=== PATIENT | male | born 1950 | race Asian ===

== ENCOUNTER 2017-10-15 12:01 | Emergency (ER) | payer MEDICARE, OTHER ==
[2017-10-15] MEDS: METHYLPREDNISOLONE 125 MG INJ IV (15:09)
[2017-10-15] MEDS: ALBUTEROL 0.083% (NEB) 2.5 MG/3 ML AMP NEB (15:26)
[2017-10-15 15:27] LABS: ADD MAN DIFF? NO
[2017-10-15 15:30] LABS: BASOPHIL # 0.1 10^3/ul (0.0-0.1); BASOPHILS % 0.9 % (0.0-2.0); EOSINOPHILS # 0.3 10^3/ul (0.0-0.5); EOSINOPHILS % 3.7 % (0.0-7.0); HEMATOCRIT 39.4 % (42.0-52.0); HEMOGLOBIN 13.4 g/dl (14.0-18.0); LYMPHOCYTES # 2.2 10^3/ul (0.8-2.9); LYMPHOCYTES % 25.9 % (15.0-51.0); MEAN CORPUSCULAR HEMOGLOBIN 31.5 pg (29.0-33.0); MEAN CORPUSCULAR VOLUME 92.7 fl (82.0-101.0); MEAN PLATELET VOLUME 9.4 fl (7.4-10.4); MONOCYTE # 1.2 10^3/ul (0.3-0.9); NEUTROPHIL # 4.7 10^3/ul (1.6-7.5); NEUTROPHILS % 54.8 % (39.0-77.0); PLATELET COUNT 205 10^3/UL (140-415); RED BLOOD COUNT 4.25 10^6/ul (4.70-6.10); RED CELL DISTRIBUTION WIDTH 13.2 % (11.5-14.5)
[2017-10-15 15:30] LABS: WHITE BLOOD COUNT 8.6 10^3/ul (4.8-10.8)
[2017-10-15 15:52] LABS: ALANINE AMINOTRANSFERASE 31 IU/L (13-69); ALBUMIN 4.3 g/dl (3.3-4.9); ALBUMIN/GLOBULIN RATIO 1.13; ALKALINE PHOSPHATASE 94 IU/L (42-121); ANION GAP 18 (8-16); ASPARTATE AMINO TRANSFERASE 21 IU/L (15-46); BILIRUBIN,INDIRECT 0.4 mg/dl (0-1.1); BILIRUBIN,TOTAL 0.4 mg/dl (0.2-1.3); BLOOD UREA NITROGEN 12 mg/dl (7-20); CALCIUM 10.8 mg/dl (8.4-10.2); CARBON DIOXIDE 27 mmol/L (21-31); CHLORIDE 102 mmol/L (97-110); CREATININE 1.26 mg/dl (0.61-1.24); GLUCOSE 135 mg/dl (70-220); POTASSIUM 4.5 mmol/L (3.5-5.1); SODIUM 142 mmol/L (135-144); TOTAL PROTEIN 8.1 g/dl (6.1-8.1)
[2017-10-15 16:01] LABS: B-TYPE NATRIURETIC PEPTIDE 175 PG/ML (0-125)
[2017-10-15 16:07] LABS: TROPONIN-I < 0.012 ng/ml (0.00-0.12)
== END 2017-10-15 17:28 | disposition home or self-care (01) ==
LOC: E/R 12:01
DX: J44.9 Chronic obstructive pulmonary disease, unspecified (principal); I10 Essential (primary) hypertension; Z87.891 Personal history of nicotine dependence; Z79.82 Long term (current) use of aspirin
CPT/HCPCS: 36415; 71045; 80053; 83880; 84484; 85025; 93005; 94664; 96374; 99285-25

== ENCOUNTER 2018-01-10 11:57 | Emergency (ER) | payer MEDICARE, OTHER | END 2018-01-10 13:27 | disposition home or self-care (01) | LOC: E/R 11:57 | DX: R04.0 Epistaxis (principal); J44.9 Chronic obstructive pulmonary disease, unspecified; I10 Essential (primary) hypertension; C73 Malignant neoplasm of thyroid gland; Z87.891 Personal history of nicotine dependence | CPT/HCPCS: 99282 ==

== ENCOUNTER 2018-09-20 16:16 | Inpatient (IN) | payer MEDICARE, OTHER ==
[2018-09-20 16:45] LABS: ADD MAN DIFF? NO
[2018-09-20 16:51] LABS: BASOPHILS % 0.3 % (0.0-2.0); HEMATOCRIT 39.5 % (42.0-52.0); HEMOGLOBIN 13.6 g/dl (14.0-18.0); LYMPHOCYTES % 9.2 % (15.0-51.0); MEAN CORPUSCULAR HEMOGLOBIN 30.3 pg (29.0-33.0); MEAN CORPUSCULAR HGB CONC 34.4 g/dl (32.0-37.0); MEAN PLATELET VOLUME 10.1 fl (7.4-10.4); MONOCYTES % 8.8 % (0.0-11.0); NEUTROPHIL # 8.8 10^3/ul (1.6-7.5); NEUTROPHILS % 80.8 % (39.0-77.0); PLATELET COUNT 197 10^3/UL (140-415); RED BLOOD COUNT 4.49 10^6/ul (4.70-6.10); RED CELL DISTRIBUTION WIDTH 12.4 % (11.5-14.5)
[2018-09-20 16:51] LABS: WHITE BLOOD COUNT 10.9 10^3/ul (4.8-10.8)
[2018-09-20] MEDS: CEFEPIME 2GM/50 ML (PMX) 50 ML IVPB (16:55)
[2018-09-20] MEDS: SODIUM CHLORIDE 0.9% 1L BAG IV* (16:55)
[2018-09-20] MEDS: METHYLPREDNISOLONE 125 MG INJ IV (16:55)
[2018-09-20] MEDS: ACETAMINOPHEN 325 MG TAB PO (16:56)
[2018-09-20 16:58] LABS: INR 0.99; PROTIME 13.2 Sec (11.9-14.9)
[2018-09-20 17:00] LABS: ALANINE AMINOTRANSFERASE 39 IU/L (13-69); ALBUMIN 4.3 g/dl (3.3-4.9); ALBUMIN/GLOBULIN RATIO 1.04; ALKALINE PHOSPHATASE 84 IU/L (42-121); ANION GAP 14 (5-13); ASPARTATE AMINO TRANSFERASE 80 IU/L (15-46); BILIRUBIN,INDIRECT 0.6 mg/dl (0-1.1); BILIRUBIN,TOTAL 0.6 mg/dl (0.2-1.3); BLOOD UREA NITROGEN 17 mg/dl (7-20); CALCIUM 10.1 mg/dl (8.4-10.2); CARBON DIOXIDE 24 mmol/L (21-31); CHLORIDE 96 mmol/L (97-110); CREATININE 1.33 mg/dl (0.61-1.24); Estimated GFR 54 mL/min (>60); GLUCOSE 230 mg/dl (70-220); SODIUM 134 mmol/L (135-144); TOTAL PROTEIN 8.4 g/dl (6.1-8.1)
[2018-09-20 17:11] LABS: TROPONIN-I 0.021 ng/ml (0.000-0.120)
[2018-09-20] MEDS: ALBUTEROL 0.5% (NEB) 2.5 MG/0.5 ML AMP INH ×2 (17:19→19:11)
[2018-09-20] MEDS: IPRATROPIUM (NEB) 0.5 MG/2.5 ML AMP INH (17:20)
[2018-09-20] MEDS: VANCOMYCIN 1 GM (PMX) 250 ML IVPB (17:32)
[2018-09-20 17:43] LABS: FREE THYROXINE INDEX (Calc) 4.33 ug/ml (0.65-3.89); T3 UPTAKE 34.1 % (23.5-40.5); T4 (THYROXINE) 12.7 ug/dl (5.5-11.0)
[2018-09-20 18:30] LABS: THYROID STIMULATING HORMONE 0.033 MIU/L (0.465-4.680)
[2018-09-20] MEDS ORDERED: ACETAMINOPHEN 325 MG TAB PO (19:00)
[2018-09-20] MEDS ORDERED: ONDANSETRON 4 MG INJ IV (19:00)
[2018-09-20 19:20] LABS: AADO2 Arterial 31.6 mmHg (7.0-24.0); Allen Test ACCEPTAB; Arterial Base Excess -4.4 mmol/L (-3.0-3); Arterial Blood Gas Oxygen Sat 98.7 mmHG (95.0-98.0); Arterial COHb 0 % (0.0-3.0); Arterial Fraction of Oxyhgb 98.4 % (93.0-99.0); Arterial MetHb 0.3 % (0.0-1.5); Arterial pCO2 30.1 mmhg (35-45); MODE MASK - BIPAP; Site Right Radial
[2018-09-20 20:53] LABS: ANION GAP 12 (5-13); BLOOD UREA NITROGEN 14 mg/dl (7-20); CALCIUM 8.9 mg/dl (8.4-10.2); CARBON DIOXIDE 18 mmol/L (21-31); CHLORIDE 105 mmol/L (97-110); CREATININE 1.25 mg/dl (0.61-1.24); Estimated GFR 58 mL/min (>60); GLUCOSE 255 mg/dl (70-220); POTASSIUM 3.7 mmol/L (3.5-5.1); SODIUM 135 mmol/L (135-144)
[2018-09-20 21:21] LABS: ADD UMIC YES; UR ASCORBIC ACID NEGATIVE (NEGATIVE); UR BACTERIA FEW /HPF (NONE SEEN); UR BILIRUBIN (Dip) NEGATIVE (NEGATIVE); UR BLOOD (Dip) NEGATIVE (NEGATIVE); UR CLARITY CLEAR (CLEAR); UR COLOR YELLOW (YELLOW); UR GLUCOSE (Dip) 3+ mg/dL (NEGATIVE); UR KETONES (Dip) 1+ mg/dL (NEGATIVE); UR LEUKOCYTE ESTERASE (Dip) NEGATIVE Leu/ul (NEGATIVE); UR NITRITE (Dip) NEGATIVE (NEGATIVE); UR RBC 0 /HPF (0-5); UR SPECIFIC GRAVITY (Dip) 1.009 (1.003-1.030); UR TOTAL PROTEIN (Dip) 1+ mg/dl (NEGATIVE); UR UROBILINOGEN (Dip) 1+ mg/dL (NEGATIVE); UR WBC 1 /HPF (0-5)
[2018-09-20] MEDS: SOD CHLORIDE 0.9% 100 ML (21:53)
[2018-09-20] MEDS: IODIXANOL LOCM 100 ML BTL (21:54)
[2018-09-20 22:23] LABS: LACTIC ACID 5.9 mmol/L (0.5-2.0)
[2018-09-21] MEDS ORDERED: ALBUTEROL/IPRATROPIUM (NEB) 3 ML AMP HHN (03:00)
[2018-09-21] MEDS: 1/2 NS + KCL 20 MEQ 1,000 ML IV ×2 (03:21→23:22)
[2018-09-21] MEDS: LEVOFLOXACIN 750MG/D5W (PMX) 150 ML IVPB (03:22)
[2018-09-21] MEDS: IPRATROPIUM (NEB) 0.5 MG/2.5 ML AMP HHN ×5 (05:00→20:28)
[2018-09-21 05:29] LABS: Allen Test ACCEPTAB; Arterial Base Excess -3.1 mmol/L (-3.0-3); Arterial Blood Gas Oxygen Sat 99.1 mmHG (95.0-98.0); Arterial COHb 0.1 % (0.0-3.0); Arterial Fraction of Oxyhgb 98.7 % (93.0-99.0); Arterial HCO3 20.9 mmol/L (22.0-26.0); Arterial MetHb 0.3 % (0.0-1.5); Arterial pCO2 34.1 mmhg (35-45); MODE MASK - BIPAP; Site Right Radial
[2018-09-21] MEDS: PANTOPRAZOLE 40 MG INJ IV (05:44)
[2018-09-21] MEDS: METHYLPREDNISOLONE 40 MG INJ IV ×4 (05:44→23:22)
[2018-09-21 07:56] LABS: ADD MAN DIFF? NO
[2018-09-21 08:08] LABS: WHITE BLOOD COUNT 8.8 10^3/ul (4.8-10.8)
[2018-09-21 08:08] LABS: BASOPHILS % 0.2 % (0.0-2.0); HEMATOCRIT 34.6 % (42.0-52.0); HEMOGLOBIN 11.8 g/dl (14.0-18.0); LYMPHOCYTES # 0.6 10^3/ul (0.8-2.9); LYMPHOCYTES % 7.2 % (15.0-51.0); MEAN CORPUSCULAR HEMOGLOBIN 30.3 pg (29.0-33.0); MEAN CORPUSCULAR HGB CONC 34.1 g/dl (32.0-37.0); MEAN CORPUSCULAR VOLUME 88.7 fl (82.0-101.0); MEAN PLATELET VOLUME 10.5 fl (7.4-10.4); MONOCYTE # 0.4 10^3/ul (0.3-0.9); MONOCYTES % 4.1 % (0.0-11.0); NEUTROPHIL # 7.6 10^3/ul (1.6-7.5); NEUTROPHILS % 86.9 % (39.0-77.0); PLATELET COUNT 174 10^3/UL (140-415); RED CELL DISTRIBUTION WIDTH 12.5 % (11.5-14.5)
[2018-09-21 08:48] LABS: ANION GAP 6 (5-13); BLOOD UREA NITROGEN 16 mg/dl (7-20); CALCIUM 9.2 mg/dl (8.4-10.2); CARBON DIOXIDE 23 mmol/L (21-31); CHLORIDE 107 mmol/L (97-110); CREATININE 0.99 mg/dl (0.61-1.24); Estimated GFR > 60 mL/min (>60); GLUCOSE 274 mg/dl (70-220); POTASSIUM 3.9 mmol/L (3.5-5.1); SODIUM 136 mmol/L (135-144)
[2018-09-21] MEDS ORDERED: LEVOTHYROXINE 25 MCG TAB PO (09:00)
[2018-09-21] MEDS: ENOXAPARIN 40 MG/0.4 ML SYG SC (09:43)
[2018-09-21] MEDS: ATENOLOL 50 MG TAB PO (10:08)
[2018-09-21] MEDS: LOSARTAN 50 MG TAB PO (10:09)
[2018-09-21] MEDS: HYDROCHLOROTHIAZIDE 25 MG TAB PO (10:09)
[2018-09-21] MEDS: LEVOTHYROXINE 125 MCG TAB PO (10:10)
[2018-09-21] MEDS: TIOTROPIUM 18 MCG CAPSULE INHA DEV INH (15:02)
[2018-09-21] MEDS: CEFEPIME 1GM/50 ML (PMX) 50 ML IVPB (15:03)
[2018-09-21] MEDS: GUAIFENESIN/DM 5ML CUP PO (18:01)
[2018-09-21] MEDS: ARFORMOTEROL TARTRATE 15MCG/2 ML AMP INH (19:39)
[2018-09-21] MEDS: BUDESONIDE (NEB) 0.5MG/2ML AMP INH (19:45)
[2018-09-21] MEDS ORDERED: NON-FORMULARY/PATIENT OWN MED (Salmeterol Xinaf-Fluticasone* (Advair*) 1 INH) INHALATION (21:00)
[2018-09-22] MEDS: CEFEPIME 1GM/50 ML (PMX) 50 ML IVPB ×3 (00:58→20:11)
[2018-09-22] MEDS: IPRATROPIUM (NEB) 0.5 MG/2.5 ML AMP HHN ×6 (02:02→20:13)
[2018-09-22] MEDS: PANTOPRAZOLE (EC) 40 MG TAB PO (05:08)
[2018-09-22] MEDS: METHYLPREDNISOLONE 40 MG INJ IV ×3 (05:08→17:19)
[2018-09-22] MEDS: LEVOTHYROXINE 125 MCG TAB PO (05:08)
[2018-09-22] MEDS ORDERED: LEVOTHYROXINE 125 MCG TAB PO (07:00)
[2018-09-22] MEDS: TIOTROPIUM 18 MCG CAPSULE INHA DEV INH (08:21)
[2018-09-22] MEDS: LOSARTAN 50 MG TAB PO (08:21)
[2018-09-22] MEDS: ATENOLOL 50 MG TAB PO (08:21)
[2018-09-22] MEDS: HYDROCHLOROTHIAZIDE 25 MG TAB PO (08:22)
[2018-09-22] MEDS: ENOXAPARIN 40 MG/0.4 ML SYG SC (08:34)
[2018-09-22] MEDS ORDERED: ATENOLOL 50 MG TAB PO (09:00)
[2018-09-22] MEDS ORDERED: HYDROCHLOROTHIAZIDE 25 MG TAB PO (09:00)
[2018-09-22] MEDS ORDERED: NON-FORMULARY/PATIENT OWN MED (Omeprazole* 40 MG) PO (09:00)
[2018-09-22] MEDS: ARFORMOTEROL TARTRATE 15MCG/2 ML AMP INH ×3 (09:00→20:13)
[2018-09-22] MEDS ORDERED: LOSARTAN 50 MG TAB PO (09:00)
[2018-09-22] MEDS: BUDESONIDE (NEB) 0.5MG/2ML AMP INH ×3 (09:53→20:14)
[2018-09-22 10:04] LABS: ADD MAN DIFF? NO
[2018-09-22 10:06] LABS: ABNORMAL IP MESSAGE 1; BASOPHILS % 0.3 % (0.0-2.0); HEMATOCRIT 37.8 % (42.0-52.0); HEMOGLOBIN 12.6 g/dl (14.0-18.0); LYMPHOCYTES # 0.9 10^3/ul (0.8-2.9); LYMPHOCYTES % 7.5 % (15.0-51.0); MEAN CORPUSCULAR HEMOGLOBIN 29.7 pg (29.0-33.0); MEAN CORPUSCULAR HGB CONC 33.3 g/dl (32.0-37.0); MEAN CORPUSCULAR VOLUME 89.2 fl (82.0-101.0); MEAN PLATELET VOLUME 10.6 fl (7.4-10.4); MONOCYTE # 0.5 10^3/ul (0.3-0.9); MONOCYTES % 3.9 % (0.0-11.0); NEUTROPHIL # 9.5 10^3/ul (1.6-7.5); NEUTROPHILS % 81.7 % (39.0-77.0); PLATELET COUNT 274 10^3/UL (140-415); POSITIVE DIFF @See below; RED BLOOD COUNT 4.24 10^6/ul (4.70-6.10)
[2018-09-22 10:06] LABS: WHITE BLOOD COUNT 11.7 10^3/ul (4.8-10.8)
[2018-09-22 10:31] LABS: ANION GAP 9 (5-13); BLOOD UREA NITROGEN 27 mg/dl (7-20); CALCIUM 9.1 mg/dl (8.4-10.2); CARBON DIOXIDE 23 mmol/L (21-31); CHLORIDE 102 mmol/L (97-110); Estimated GFR > 60 mL/min (>60); GLUCOSE 263 mg/dl (70-220); SODIUM 134 mmol/L (135-144)
[2018-09-22] MEDS: GUAIFENESIN/DM 5ML CUP PO ×2 (11:36→18:28)
[2018-09-22] MEDS ORDERED: GLUCAGON 1 MG INJ IM (13:00)
[2018-09-22] MEDS ORDERED: GLUCOSE GEL 15 GRAM TUBE BUCCAL (13:00)
[2018-09-22] MEDS ORDERED: DEXTROSE 50% 50 ML SYRINGE IV ×2 (13:00)
[2018-09-22] MEDS ORDERED: GLUCOSE GEL 15 GRAM TUBE PO ×2 (13:00)
[2018-09-22 13:08] LABS: HEMOGLOBIN A1C 7.1 % (0-5.9)
[2018-09-22] MEDS: AZITHROMYCIN 250 MG TAB PO (13:09)
[2018-09-22] MEDS: 1/2 NS + KCL 20 MEQ 1,000 ML IV ×2 (15:32→18:28)
[2018-09-22] MEDS: INSULIN ASPART [NOVOLOG] 3 ML PEN SC ×2 (17:28→21:48)
[2018-09-23] MEDS: IPRATROPIUM (NEB) 0.5 MG/2.5 ML AMP HHN ×6 (02:05→21:14)
[2018-09-23] MEDS: PANTOPRAZOLE (EC) 40 MG TAB PO (05:22)
[2018-09-23] MEDS: LEVOTHYROXINE 125 MCG TAB PO (05:22)
[2018-09-23] MEDS: METHYLPREDNISOLONE 40 MG INJ IV ×4 (05:22→16:55)
[2018-09-23] MEDS: GUAIFENESIN/DM 5ML CUP PO ×3 (05:36→20:08)
[2018-09-23 06:07] LABS: WHITE BLOOD COUNT 7.5 10^3/ul (4.8-10.8)
[2018-09-23 06:07] LABS: HEMATOCRIT 36.9 % (42.0-52.0); HEMOGLOBIN 12.5 g/dl (14.0-18.0); MEAN CORPUSCULAR HEMOGLOBIN 29.8 pg (29.0-33.0); MEAN CORPUSCULAR HGB CONC 33.9 g/dl (32.0-37.0); MEAN CORPUSCULAR VOLUME 88.1 fl (82.0-101.0); MEAN PLATELET VOLUME 9.8 fl (7.4-10.4); PLATELET COUNT 317 10^3/UL (140-415); POSITIVE DIFF @See below; RED BLOOD COUNT 4.19 10^6/ul (4.70-6.10)
[2018-09-23 06:13] LABS: ADD MAN DIFF? YES
[2018-09-23 06:41] LABS: ANION GAP 9 (5-13); BLOOD UREA NITROGEN 28 mg/dl (7-20); CALCIUM 8.5 mg/dl (8.4-10.2); CARBON DIOXIDE 27 mmol/L (21-31); CHLORIDE 99 mmol/L (97-110); CREATININE 1.08 mg/dl (0.61-1.24); Estimated GFR > 60 mL/min (>60); GLUCOSE 229 mg/dl (70-220); MAGNESIUM 2.5 mg/dl (1.7-2.5); POTASSIUM 3.9 mmol/L (3.5-5.1); SODIUM 135 mmol/L (135-144)
[2018-09-23 07:57] LABS: BAND NEUTROPHILS % (M) 14 % (0-4); GIANT THROMBO% (M) 1 % (0-0); LYMPHOCYTES #M 0.3 10^3/ul (0.8-2.9); LYMPHOCYTES % (M) 4 % (15-51); METAMYELOCYTES %M 1 % (0-0); MONOCYTE #M 0.4 10^3/ul (0.3-0.9); MONOCYTES % (M) 6 % (0-11); MYELOCYTES #M 0.2 10^3/ul (0.0-0.0); MYELOCYTES % (M) 3 % (0-0); PLATELET ESTIMATE NORMAL; POLYCHROMASIA 2+ (0-0); PROMYELOCYTES % (M) 1 % (0-0); REACTIVE LYMPHOCYTES #M 0.1 10^3/ul (0.0-0.0); REACTIVE LYMPHOCYTES% (M) 2 % (0-0); SEG NEUT #M 5.3 10^3/ul (1.6-7.5); SEGMENTED NEUTROPHILS (M) % 69 % (39-77); SMUDGE%M 5 % (0-0)
[2018-09-23] MEDS: LOSARTAN 50 MG TAB PO (08:11)
[2018-09-23] MEDS: AZITHROMYCIN 250 MG TAB PO (08:11)
[2018-09-23] MEDS: ATENOLOL 50 MG TAB PO (08:11)
[2018-09-23] MEDS: TIOTROPIUM 18 MCG CAPSULE INHA DEV INH (08:12)
[2018-09-23] MEDS: CEFEPIME 1GM/50 ML (PMX) 50 ML IVPB ×2 (08:12→20:08)
[2018-09-23] MEDS: HYDROCHLOROTHIAZIDE 25 MG TAB PO (08:12)
[2018-09-23] MEDS: INSULIN ASPART [NOVOLOG] 3 ML PEN SC ×4 (08:33→21:26)
[2018-09-23] MEDS: ENOXAPARIN 40 MG/0.4 ML SYG SC (08:34)
[2018-09-23] MEDS: BUDESONIDE (NEB) 0.5MG/2ML AMP INH ×2 (09:34→21:14)
[2018-09-23] MEDS: ARFORMOTEROL TARTRATE 15MCG/2 ML AMP INH ×2 (09:38→21:14)
[2018-09-23] MEDS: 1/2 NS + KCL 20 MEQ 1,000 ML IV (16:51)
[2018-09-23] MEDS: INSULIN GLARGINE [LANTus] (100 UNITS/ML) SYG SC (20:21)
[2018-09-24] MEDS: METHYLPREDNISOLONE 40 MG INJ IV ×5 (00:15→23:42)
[2018-09-24] MEDS: IPRATROPIUM (NEB) 0.5 MG/2.5 ML AMP HHN ×4 (01:23→19:38)
[2018-09-24] MEDS: PANTOPRAZOLE (EC) 40 MG TAB PO (05:12)
[2018-09-24] MEDS: LEVOTHYROXINE 125 MCG TAB PO (05:12)
[2018-09-24] MEDS: CEFEPIME 1GM/50 ML (PMX) 50 ML IVPB ×2 (07:49→21:22)
[2018-09-24] MEDS: ATENOLOL 50 MG TAB PO (07:50)
[2018-09-24] MEDS: LOSARTAN 50 MG TAB PO (07:50)
[2018-09-24] MEDS: TIOTROPIUM 18 MCG CAPSULE INHA DEV INH (07:50)
[2018-09-24] MEDS: HYDROCHLOROTHIAZIDE 25 MG TAB PO (07:50)
[2018-09-24] MEDS: AZITHROMYCIN 250 MG TAB PO (07:50)
[2018-09-24] MEDS: ENOXAPARIN 40 MG/0.4 ML SYG SC (08:02)
[2018-09-24] MEDS: INSULIN ASPART [NOVOLOG] 3 ML PEN SC ×4 (08:02→21:37)
[2018-09-24 08:31] LABS: WHITE BLOOD COUNT 8.1 10^3/ul (4.8-10.8)
[2018-09-24 08:31] LABS: HEMATOCRIT 40.7 % (42.0-52.0); HEMOGLOBIN 13.6 g/dl (14.0-18.0); MEAN CORPUSCULAR HEMOGLOBIN 29.8 pg (29.0-33.0); MEAN CORPUSCULAR HGB CONC 33.4 g/dl (32.0-37.0); MEAN CORPUSCULAR VOLUME 89.3 fl (82.0-101.0); MEAN PLATELET VOLUME 9.9 fl (7.4-10.4); PLATELET COUNT 395 10^3/UL (140-415); POSITIVE DIFF @See below; RED BLOOD COUNT 4.56 10^6/ul (4.70-6.10); RED CELL DISTRIBUTION WIDTH 12.9 % (11.5-14.5)
[2018-09-24 08:40] LABS: ADD MAN DIFF? YES
[2018-09-24 09:04] LABS: ANION GAP 9 (5-13); BLOOD UREA NITROGEN 27 mg/dl (7-20); CALCIUM 8.9 mg/dl (8.4-10.2); CARBON DIOXIDE 28 mmol/L (21-31); CHLORIDE 99 mmol/L (97-110); Estimated GFR > 60 mL/min (>60); GLUCOSE 219 mg/dl (70-220); POTASSIUM 4.7 mmol/L (3.5-5.1); SODIUM 136 mmol/L (135-144)
[2018-09-24] MEDS: BUDESONIDE (NEB) 0.5MG/2ML AMP INH ×2 (09:25→19:36)
[2018-09-24] MEDS: ARFORMOTEROL TARTRATE 15MCG/2 ML AMP INH ×2 (09:41→19:36)
[2018-09-24 10:29] LABS: ANISOCYTOSIS 1+ (0-0); BAND NEUTROPHILS % (M) 1 % (0-4); GIANT THROMBO% (M) 4 % (0-0); LYMPHOCYTES #M 0.7 10^3/ul (0.8-2.9); LYMPHOCYTES % (M) 9 % (15-51); MONOCYTE #M 0.4 10^3/ul (0.3-0.9); MONOCYTES % (M) 5 % (0-11); MYELOCYTES % (M) 1 % (0-0); PLATELET ESTIMATE NORMAL; POIKILOCYTOSIS 1+ (0-0); PROMYELOCYTES #M 0.1 10^3/ul (0-0); PROMYELOCYTES % (M) 2 % (0-0); REACTIVE LYMPHOCYTES #M 0.1 10^3/ul (0.0-0.0); REACTIVE LYMPHOCYTES% (M) 2 % (0-0); SEG NEUT #M 6.5 10^3/ul (1.6-7.5); SEGMENTED NEUTROPHILS (M) % 80 % (39-77); SMUDGE%M 1 % (0-0)
[2018-09-24] MEDS: 1/2 NS + KCL 20 MEQ 1,000 ML IV (11:04)
[2018-09-24] MEDS: INSULIN GLARGINE [LANTus] (100 UNITS/ML) SYG SC (22:36)
[2018-09-25] MEDS: IPRATROPIUM (NEB) 0.5 MG/2.5 ML AMP HHN ×5 (00:18→16:53)
[2018-09-25] MEDS: hydrALAzine 20 MG INJ IV (03:03)
[2018-09-25] MEDS: METHYLPREDNISOLONE 40 MG INJ IV ×3 (06:38→17:06)
[2018-09-25] MEDS: LEVOTHYROXINE 125 MCG TAB PO (06:38)
[2018-09-25] MEDS: PANTOPRAZOLE (EC) 40 MG TAB PO (06:38)
[2018-09-25] MEDS: INSULIN ASPART [NOVOLOG] 3 ML PEN SC ×3 (07:54→17:13)
[2018-09-25] MEDS: CEFEPIME 1GM/50 ML (PMX) 50 ML IVPB (08:24)
[2018-09-25] MEDS: LOSARTAN 50 MG TAB PO (08:24)
[2018-09-25] MEDS: AZITHROMYCIN 250 MG TAB PO (08:24)
[2018-09-25] MEDS: ATENOLOL 50 MG TAB PO (08:24)
[2018-09-25] MEDS: HYDROCHLOROTHIAZIDE 25 MG TAB PO (08:25)
[2018-09-25] MEDS: ENOXAPARIN 40 MG/0.4 ML SYG SC (08:32)
[2018-09-25] MEDS: ARFORMOTEROL TARTRATE 15MCG/2 ML AMP INH (09:00)
[2018-09-25] MEDS: TIOTROPIUM 18 MCG CAPSULE INHA DEV INH (09:25)
[2018-09-25] MEDS: 1/2 NS + KCL 20 MEQ 1,000 ML IV (09:27)
[2018-09-25] MEDS: GUAIFENESIN/DM 5ML CUP PO (09:39)
[2018-09-25] MEDS: BUDESONIDE (NEB) 0.5MG/2ML AMP INH (09:57)
[2018-09-25] MEDS ORDERED: AMLODIPINE 5 MG TAB PO (21:00)
== END 2018-09-25 19:09 | disposition home or self-care (01) | DRG 871 ==
LOC: E/R 16:16 → TEL 09-21 16:47
PROVIDERS: Internal Medicine
PROC: 5A09357 Assistance with Respiratory Ventilation, Less than 24 Consecutive Hours, Continuous Positive Airway Pressure (ICD-10-PCS; principal; 2018-09-20)
PROC: 4A033R1 Measurement of Arterial Saturation, Peripheral, Percutaneous Approach (ICD-10-PCS; 2018-09-20)
DX: A41.9 Sepsis, unspecified organism (principal); J96.01 Acute respiratory failure with hypoxia; J18.1 Lobar pneumonia, unspecified organism; J44.1 Chronic obstructive pulmonary disease with (acute) exacerbation; C78.00 Secondary malignant neoplasm of unspecified lung; J44.0 Chronic obstructive pulmonary disease with (acute) lower respiratory infection; R65.20 Severe sepsis without septic shock; C73 Malignant neoplasm of thyroid gland; I10 Essential (primary) hypertension; E89.0 Postprocedural hypothyroidism; E11.9 Type 2 diabetes mellitus without complications; Z87.891 Personal history of nicotine dependence; Z92.3 Personal history of irradiation
CPT/HCPCS: 36415; 36600; 71045; 71275; 80048; 80053; 81001; 82803; 82962; 83036; 83605; 83735; 84436; 84443; 84479; 84484; 85025; 85610; 85730; 87040; 87081; 87086; 87400; 93005; 94640; 94644; 94660; 94664; 96365; 96375; 99291-25